=== PATIENT | male | born 1950 | race Caucasian/White ===

== ENCOUNTER 2018-09-17 07:03 | Day surgery (SDC) | payer MEDICARE, OTHER ==
[2018-09-17] MEDS ORDERED: Propofol 200 MG/20 ML SDV ONE ×3 (07:17→09:32)
[2018-09-17] MEDS ORDERED: fentaNYL 100 MCG/2 ML SDV ONE (07:17)
[2018-09-17] MEDS ORDERED: Midazolam 1 MG/ML 2 ML SDV ONE (07:17)
[2018-09-17] MEDS ORDERED: Lactated Ringers 1,000 ML IV SCH (07:45)
--- NOTE | 2018-09-17 15:17 | OR ---
DATE OF PROCEDURE: 09/17/2018 PREOPERATIVE DIAGNOSIS: Positive Cologuard. POSTOPERATIVE DIAGNOSES: Positive Cologuard. Polyps in the transverse colon, proximal transverse colon, and 40 cm from the anal verge. PROCEDURE PERFORMED: Colonoscopy to the cecum with biopsy resection of polyps in the transverse colon and proximal transverse colon and biopsy followed by snare cautery polypectomy 40 cm from the anal verge. SURGEON: Cb Moran MD. ANESTHESIA: IV anesthesia with monitored anesthesia care. INDICATION: This 68-year-old white male is referred for a colonoscopy because of a positive Cologuard. He does not think he has ever had a colonoscopic exam. I counseled him for the procedure including risks and alternatives, and he gave his informed consent to proceed. DESCRIPTION OF PROCEDURE: The patient was placed in the left lateral decubitus position. IV anesthesia was administered by the Anesthesia Service. Time-out was held. A rectal exam was performed, which was unremarkable. The flexible video Olympus colonoscope was introduced through his anus, up his rectum, and out his colon all the way to the cecum. En route, in the transverse colon, we saw a small polyp which we removed with the biopsy forceps. Going more proximally, we encountered 3 small polyps adjacent to each other, which we removed with the biopsy forceps and sent to the laboratory as one specimen. Once the cecum was reached, the scope was slowly withdrawn examining the mucosa throughout. No additional mucosal abnormalities were noted until we reached 40 cm from the anal verge. Here, a slightly larger polyp was seen. We initially biopsied it. It was too large to remove using this technique. A snare was passed about its base. It was elevated up away from the bowel wall and amputated as electrocautery was applied. The polyp was aspirated up through the scope and captured in a polyp trap. The scope was withdrawn further with no other lesions noted. The scope was retroflexed in the rectum with the distal rectum appearing unremarkable. The scope was straightened and removed. He tolerated the procedure well. Cb Moran MD /[id number]
== END 2018-09-17 11:15 | disposition home or self-care (01) ==
LOC: JP.SDS 07:03
PROVIDERS: ATTEND Surgery
DX: D12.5 Benign neoplasm of sigmoid colon (principal); D12.3 Benign neoplasm of transverse colon; I10 Essential (primary) hypertension; I12.9 Hypertensive chronic kidney disease with stage 1 through stage 4 chronic kidney disease, or unspecified chronic kidney disease; N18.9 Chronic kidney disease, unspecified; Z88.7 Allergy status to serum and vaccine; Z87.891 Personal history of nicotine dependence; Z90.5 Acquired absence of kidney
CPT/HCPCS: 45380; 45385; 88305; J2250; J2704; J3010; J7120